=== PATIENT | female | born 1995 ===

== ENCOUNTER → 2018-12-26 | Outpatient (CLI) | payer OTHER ==
--- NOTE | 2018-12-27 07:58 | RADIOLOGY REPORT (SQ) ---
EXAM DESCRIPTION: DUPLEX ART/FRED FLOW COMPLETE COMPLETED DATE/TIME: 12/26/2018 12:06 pm REASON FOR STUDY: HTN/SOHAIL COMPARISON: None. TECHNIQUE: Realtime and static grayscale images acquired. Selected color Doppler, velocities and spe ctral images recorded. LIMITATIONS: None. FINDINGS: RIGHT KIDNEY: RENAL ARTERY VELOCITIES: 87.5 cm/sec. Segmental artery velocity 40.4 cm/sec. RENAL VEIN: Color doppler flow present, patent. VELOCITY RATIO: 1.03. Normal waveforms. KIDNEY: Normal size. No significant pathology. LEFT KIDNEY: RENAL ARTERY VELOCITIES: 80.9 cm/sec. Segmental artery velocity 61.6 cm/sec. RENAL VEIN: Color doppler flow present, patent. VELOCITY RATIO: 0.95. Normal waveforms. KIDNEY: Normal size. No significant pathology. BLADDER: Normal. OTHER: No other significant finding. IMPRESSION: NO DOPPLER EVIDENCE OF HEMODYNAMICALLY SIGNIFICANT RENAL ARTERY STENOSIS. COMMENT: NORMAL RENAL ARTERY/AORTA VELOCITY RATIO IS LESS THAN OR EQUAL TO 3.5. TECHNICAL DOCUMENTATION: JOB ID: [id number] [employer]- All Rights Reserved Reading location - IP/workstation name: [email or web address]
== END ==
LOC: RAD 10:54
PROVIDERS: ATTEND Physician Assistant
DX: I70.1 Atherosclerosis of renal artery (principal)
CPT/HCPCS: 93975